=== PATIENT | female | born 1995 | race Caucasian/White ===

== ENCOUNTER 2023-12-12 09:30 | Inpatient (IN) | payer BC, SELFPAY ==
[2023-12-12] VITALS (53 sets, daily range): BP systolic 102–147; BP diastolic 59–91; PULSE 64–240; RESP 16–20; TEMP 36.6–37.8; O2SAT 81–100; BMI 22.5
--- NOTE | 2023-12-12 09:14 | OB.TRI.NOTE ---
HPI - General HPI Narrative DOMINGUEZ DIAZ, is a 28 F who presents for rule out labor. PFSH PFSH Home Medications ?Medication ?Instructions ?Recorded ?Last Taken ?Type levothyroxine 50 mcg tablet 50 mcg PO DAILY 12/12/23 12/12/23 06:00 History (Synthroid) 50 mcg amrkcivn-epn-Co-FA 1 mg 1 tab PO DAILY 12/12/23 12/10/23 06:00 History tablet 1 TAB Allergy/AdvReac Type Severity Reaction Status Date / Time No Known Allergies Allergy Verified 12/12/23 08:17
--- NOTE | 2023-12-12 09:30 | HP.PCM.OB_ITS ---
HPI - General General Date of Admission: 12/12/23 HPI Narrative DOMINGUEZ DIAZ, is a 28 F who presents with spontaneous onset of labor. Patient stated she started joe last night. Denies any loss of fluid or vaginal bleeding. Positive movement. GBS is negative. Maternal Data Information URSZULA Calculator Estimated Delivery Date Method Current WG Current Estimate 12/09/23 Manual 40w 3d PFSH PFSH Medical History (Updated 12/12/23 @ 17:55 by Melinda Barksdale CNM) Thyroid disorder Home Medications ?Medication ?Instructions ?Recorded ?Last Taken ?Type levothyroxine 50 mcg tablet 50 mcg PO DAILY 12/12/23 12/12/23 06:00 History (Synthroid) 50 mcg ffbjwvyz-qwq-He-FA 1 mg 1 tab PO DAILY 12/12/23 12/10/23 06:00 History tablet 1 TAB Allergy/AdvReac Type Severity Reaction Status Date / Time No Known Allergies Allergy Verified 12/12/23 08:17 Surgical History (Updated 12/12/23 @ 10:27 by Hilda Toth) History of surgery Social History Smoking Status: Never smoker History Elective abortions Hx Para 0 Spontaneous abortions Hx # Term Pregnancies Ectopic pregnancies Hx # Pregnancies Multiple births # of living children NST FHR Rate Baby A Baseline: 130 Variability:: Moderate Accelerations:: 15 x 15 Decelerations:: None NST Reactive:: Yes FHR Category:: Category I Uterine Activity:: Occasional ROS Eyes Eyes: Denies blurry vision, change in vision or spots in vision ENT HEENT: Denies dizziness or headache(s) Cardiovascular Cardiovascular: Denies abdominal pain, chest pain or dyspnea Respiratory/Chest Respiratory/Chest: Denies cough, dyspnea, shortness of breath at rest or sh ortness of breath with exertion Gastrointestinal Gastrointestinal: Denies abdominal pain, diarrhea or vomiting Genitourinary Genitourinary: Denies change in urinary stream, difficulty urinating or dysuria Musculoskeletal Musculoskeletal: Reports none Integumentary Integumentary: Denies rash Neurologic Neurologic: Denies dizziness, headache(s), memory loss or weakness Psychiatric Psychiatric: Reports none Vital Signs Vital Signs Vital Signs: 12/12/23 07:57 12/12/23 07:57 12/12/23 07:58 Temperature Temperature Source Temporal Pulse Rate 90 Respiratory Rate Blood Pressure 119/83 H BP Systolic 119 BP Diastolic 83 07/17/24 07:58 12/12/23 07:58 Temperature 99.1 F Temperature Source Pulse Rate Respiratory Rate 18 Blood Pressure BP Systolic BP Diastolic Weight Weight: 148 lb 2.41 oz Body Mass Index (BMI) 22.5 Physical Exam Const alert and no apparent distress General Appearance: cooperative and comfortable Exam Limitations: no limitations HEENT normocephalic Eyes General Eye: normal appearance of both eyes Neck full ROM General: normal visual inspection Chest Chest: symmetrical chest wall rise Resp normal respiratory effort and normal air movement Effort and Inspection: symmetric chest movement Auscultation: clear to auscultation bilaterally Cardio regular rate and regular rhythm GI normal to inspection, nondistended, normoactive bowel sounds Back/Spine normal ROM Extremity full ROM and no calf tenderness General Extremity: normal exam except as noted Skin no rashes or lesions noted Neuro CN's II-XII intact bilaterally Psych mental status grossly normal Labs Labs Labs: Blood Type O NEGATIVE Antibody Screen POSITIVE Hct 39.9 % (37-47) Hgb 14.2 g/dL (12.0-15.0) Syphilis Total Ab Non-reactive GBS negative Assessment & Plan (1) 40 weeks gestation of : (2) Spontaneous onset of labor: (3) Thyroid disorder: COMMENT: delicia PLAN: Plan CE Admit to labor and delivery NST reactive Routine labs GBS negative Start Pitocin IV at 2 mu/min and increase per orders Epidural when indicated Dr. Hagen notified of admission and is collaborating physician
[2023-12-12] MEDS: Lactated Ringers 1,000 ML 50 ML IV (10:20)
[2023-12-12 10:37] LABS: Absolute Lymphocyte Count 1.16 X10^3/uL (0.83-4.51); Absolute Neutrophil Count 10.6 X10^3/uL (2.0-7.7); Basophil# 0.04 X10^3/uL; Basophil% 0.3 % (0-1); Eosinophil# 0.01 X10^3/uL; Eosinophils% 0.1 % (0-5); Hematocrit 39.9 % (37-47); Hemoglobin 14.2 g/dL (12.0-15.0); Lymphocyte # 1.16 X10^3/ul (0.83-4.51); Lymphocyte % 9.3 % (19-41); Mean Corp Hgb Conc 35.6 g/dL (32-36); Mean Corpuscular Volume 92.8 fL (81-99); Mean Platelet Vol. 9.8 fl (6.2-12.0); Monocyte# 0.66 X10^3/uL; Monocyte% 5.3 % (0-10); NRBC Flagged by Analyzer 0 % (0-5); Neutrophil # 10.59 X10^3/uL (2.7-7.7); Neutrophil % 84.7 % (47-70); Platelet Count 170 K/mm3 (150-450); RBC Distribution Width CV 12.9 % (11.6-14.6); RBC Distribution Width SD 43.8 fl (35.1-43.9); White Blood Count 12.5 K/mm3 (4.4-11.0)
[2023-12-12] MEDS: Oxytocin 15 Units/NS 250ml 15 UNITS/250 ML IV.SOLN 2 UNITS IV (10:41)
[2023-12-12 11:12] LABS: Syphilis Antibodies Non-reactive
[2023-12-12] MEDS: Lactated Ringers 1,000 ML 999 ML IV (11:36)
[2023-12-12] MEDS: fentaNYL-bupivacaine (epidural) 100 ML BAG EPIDURAL (12:46)
[2023-12-12] MEDS: LACTATED RINGERS 500 ML 999 ML IV (14:55)
[2023-12-12] MEDS: Oxytocin 15 Units/NS 250ml 15 UNITS/250 ML IV.SOLN 83 UNITS IV (17:52)
--- NOTE | 2023-12-12 17:57 | EX.PCM.OBRPT ---
Assessment & Plan (1) Compound presentation, delivered, current hospitalization: (2) (spontaneous vaginal delivery): (3) Thyroid disorder: COMMENT: delicia (4) Laceration, obstetrical, first degree: Maternal Data Information URSZULA Calculator Estimated Delivery Date Method Current WG Current Estimate 12/09/23 Manual 40w 3d Vaginal Delivery Maternal Presentation Maternal Presentation: Active Labor Maternal Presentation: that presents in spontaneous onset of labor Operative Information Date of Procedure: 12/12/23 Pre-Operative Diagnosis: Term gestation, Spontaneous onset of labor Post-Operative Diagnosis: , Live female Surgery / Procedure Performed: Spontaneous Vaginal Delivery Type of Anesthesia: Epidural Drain: Rios to straight drain Estimated Blood Loss: 150 Time of Delivery: 17:17 Findings Description of Procedure: Called to room for delivery. Assisted patient with pushing. Infant remained but not delivered. Placed in hands and knees to push. Repositioned back to lithotomy position for delivery. With maternal effort, head delivered FERNANDEZ position. Right arm bent and next to face. Posterior shoulder delivered without any forceful downward traction. Vigorous female placed on maternal abdomen and was attended to by nursing. Pitocin IV started for active management of the third stage of labor. 3 vessel cord clamped and cut by FOB after delay. placed skin to skin with patient. Placenta delivered spontaneously and intact. Vaginal sweep completed. Two separate first degree vaginal lacerations repaired in usual fashion using 3-0 Vicryl Rapid. Hemostasis obtained. EBL 150 cc. Fundus firm 2 below U. APGARS 8/9. Patient and infant bonding well at this time. Presentation: FERNANDEZ ( arm /hand by face) Amniotic Membrane Rupture Type: Spontaneous Time of Membrane Rupture: 1531 Amniotic Fluid Description: Clear Placental Delivery Description: Spontaneous Placenta Disposition: [facility] Cord Vessel Description: 3 Vessels Cord Entanglement: None Infant A Gender: Female (1 minute): 8 (5 minute): 9 Delayed Cord Clamping: Yes Post Vaginal Delivery Medications Given After Delivery: IV Pitocin Episiotomy Description: None Laceration: Vaginal Extension/lac and 1st degree Complication Complications: None
[2023-12-13 04:21] VITALS: BP 108/80; PULSE 89; RESP 16; TEMP 36.4; O2SAT 97
[2023-12-13] MEDS: Levothyroxine 50 MCG Tablet PO (05:59)
--- NOTE | 2023-12-13 08:00 | PN.OBGYN_ITS ---
Subjective Subjective Patient is doing well and offers no complaints this morning. Pain is well- controlled. She is ambulating and voiding without difficulty. She is eating without nausea or vomiting. Lochia is normal. She denies chest pain, shortness of breath, lightheadedness, leg pain. Objective Data Objective Data Vital Signs: Vital Signs Temp Pulse Resp BP Pulse Ox O2 Del Method 97.5 F L 89 16 108/80 97 Room Air 12/13/23 04:21 12/13/23 04:21 12/13/23 04:21 12/13/23 04:21 12/13/23 04:21 12/13/23 04:21 Oxygen Delivery Method Room Air Weight: 148 lb 2.41 oz Body Mass Index (BMI) 22.5 Intake & Output: Intake and Output for Last 24 Hours 12/11/23 12/12/23 12/13/23 23:59 23:59 23:59 Intake Total 2912.80 / 2912.80 Output Total 1000 / 1000 550 / 550 Balance 1912.80 / 1912.80 -550 / -550 Lab / Micro Data 12/12/23 10:20 Labs: Laboratory Results - last 24 hr 12/12/23 10:20: WBC 12.5 H, RBC 4.30, Hgb 14.2, Hct 39.9, MCV 92.8, MCH 33.0 H, MCHC 35.6, RDW Std Deviation 43.8, RDW Coeff of Josefina 12.9, Plt Count 170, MPV 9.8, Immature Gran % (Auto) 0.300, Neut % (Auto) 84.7 H, Lymph % (Auto) 9.3 L, [place] % (Auto) 5.3, Eos % (Auto) 0.1, Baso % (Auto) 0.3, Absolute Neuts (auto) 10.6 H, Absolute Lymphs (auto) 1.16, Nucleated RBC % 0, Syphilis Total Ab Non- reactive, Blood Type O NEGATIVE, Antibody Screen POSITIVE, Antibody Identification ANTI-D Physical Exam Const alert and no apparent distress General Appearance: comfortable HEENT normocephalic Resp normal respiratory effort GI soft to palpation, non-tender and non-distended GI Narrative: FF@U-1 Extremity normal to inspection and no calf tenderness Assessment & Plan (1) Laceration, obstetrical, first degree: (2) (spontaneous vaginal delivery): PLAN: PPD#1 s/p . Doing well. Routine care. She is considering discharge tonight.
--- NOTE | 2023-12-13 08:02 | DCINST_ITS ---
Discharge Instructions Diet Discharge Diet: No restrictions Activity Discharge Activity: May Drive and May Shower May resume sexual activity in: 6 weeks Ice area for (Minutes): 15 Weight Bearing Status: Weight bearing as tolerated Lifting Restrictions: nothing heavier than baby Dressing / Incision Call your doctor if your incision/area has: Continuous Slow Oozing, Sudden Increased Bleeding, Increased Pain/ Swelling, Increased Redness, Foul Smelling Discharge and Swelling at the incision site Call your doctor if you observe: Fever of 101 or Higher, Coldness, Increased Pain, Numbness or Tingling, Change in Color, Inability to urinate, Inability to have a bowel movement, Using more than 1 pad per hour, Shortness of breath, Dizziness, Fainting spells, Swelling in the ankles, Chest pain, Prolonged hiccupping, Increased palpitations (irregular heartbeat), Calf discomfort and Uncontrolled pain Cleanse incision/area with: Soap & Water Follow Up Care Please Follow Up With: Melinda Barksdale CNM When: 1-2 weeks early visit 6 weeks for exam Test Results: Test results from this visit will be discussed in further detail at your follow- up appointment, if applicable. Discharge Plan Admission Admit Date/Time: 12/12/23 09:30 Primary Reason for Your Visit: delivery Attending Provider: Melinda Barksdale Primary Care Provider: Care Physician,Courtney Primary Instructions Patient Instructions: After a Vaginal Discharge Orders/Prescriptions Prescriptions: Continued levothyroxine [Synthroid] 50 mcg tablet 50 mcg PO DAILY [id number]-[id number] 1 mg tablet 1 tab PO DAILY Referrals / Follow Up: Care Physician,No Primary [Primary Care Provider] - Disposition Disposition (needs filled in before D/C Order can be placed): Home, Self Care
[2023-12-13 09:01] VITALS: BP 114/83; PULSE 87; RESP 16; TEMP 36.4; O2SAT 98
[2023-12-13 12:07] VITALS: BP 101/70; PULSE 85; RESP 17; TEMP 36.3; O2SAT 98
[2023-12-13] MEDS: Acetaminophen 500 MG Tablet 1000 MG PO (12:20)
[2023-12-13] MEDS: Rho(D) Immune Globulin 300 MCG (1500 Unit) Syringe IV (15:39)
[2023-12-13 15:52] VITALS: BP 101/77; PULSE 70; RESP 17; TEMP 36.4
--- NOTE | 2024-01-01 08:27 | NURSING ---
corrected delivery provider
== END 2023-12-13 19:15 | disposition home or self-care (01) | DRG 807 ==
LOC: WPOUT 09:30 → WP 09:30
PROVIDERS: Admitting Provider Obstetrics & Gynecology; Referring Provider Advanced Practice Midwife; Visit Provider Advanced Practice Midwife
DX: O32.6XX0 Maternal care for compound presentation, not applicable or unspecified (principal); Z37.0 Single live birth; E07.9 Disorder of thyroid, unspecified; O70.0 First degree perineal laceration during delivery; Z3A.40 40 weeks gestation of pregnancy; O99.284 Endocrine, nutritional and metabolic diseases complicating childbirth
CPT/HCPCS: 59025; 59050; 85025; 85461; 86780; 86850; 86870; 86900; 86901; 90384; 99221; J7120; G0378; J2790; J2791